=== PATIENT | female | born 2000 | race Caucasian/White ===

== ENCOUNTER 2019-11-18 03:50 | Emergency (ER) | payer OTHER ==
[~2019-11-18] VITALS: Ht 160 cm; Wt 59.0 kg
[~2019-11-18 03:50] MED LIST: ALBUTEROL2.5 MG/31 IH; ALBUTEROL2.5 MG/32 IH; ORAPRED15 MG/5 ML PO
[2019-11-18 05:21] VITALS: BP 123/61
== END 2019-11-18 05:21 | disposition home or self-care (01) ==
LOC: M.ERS 03:50
DX: S62.366A Nondisplaced fracture of neck of fifth metacarpal bone, right hand, initial encounter for closed fracture (principal); J45.909 Unspecified asthma, uncomplicated; W22.8XXA Striking against or struck by other objects, initial encounter; Y93.89 Activity, other specified; Y92.89 Other specified places as the place of occurrence of the external cause; Y99.8 Other external cause status

== ENCOUNTER 2019-12-14 05:27 | Emergency (ER) | payer OTHER ==
[~2019-12-14] VITALS: Ht 152.4 cm; Wt 63.5 kg
[2019-12-14 05:56] LABS: URINE BILIRUBIN NEGATIVE (Negative); URINE BLOOD NEGATIVE (Negative); URINE CLARITY CLEAR; URINE COLOR YELLOW; URINE GLUCOSE-RANDOM NEGATIVE (Negative); URINE LEUKOCYTES-REFLEX NEGATIVE (Negative); URINE NITRITE-REFLEX NEGATIVE (Negative); URINE PROTEIN NEGATIVE (Negative); URINE UROBILINOGEN 0.2 E.U./dl (0.2-1.0)
[2019-12-14 05:57] LABS: URINE KETONES 3+ (Negative)
[2019-12-14 06:06] LABS: ABSOLUTE LYMPHOCYTES 1.6 thou/uL (0.8-5.3); ABSOLUTE MONOCYTES 0.7 thou/uL (0.0-1.2); ABSOLUTE NEUTROPHILS 7.3 thou/uL (1.6-8.1); BASOPHILS 0.4 %; EOSINOPHILS 0.3 %; HEMATOCRIT 38.3 % (37.0-47.0); HEMOGLOBIN 12.7 gm/dL (12.0-15.0); LYMPHOCYTES 16.6 %; MCH 29.5 pg (26.0-34.0); MCHC 33.2 g/dL (28.0-37.0); MCV 89.1 fL (80.0-100.0); MONOCYTES 7.6 %; MPV 8.2 fl. (7.2-11.1); NUCLEATED RBCS 0 /100WBC; PLATELET COUNT* 257 thou/uL (150-400); POLYS 75.1 %; RDW-CV 13.9 % (10.5-14.5); WBC 9.7 thou/uL (4.0-11.0)
[2019-12-14 06:18] LABS: CALCIUM 8.8 mg/dL (8.5-10.1); CREATININE 0.8 mg/dL (0.6-1.3)
[2019-12-14 06:22] LABS: TOTAL BILIRUBIN 0.3 mg/dL (<0.1-1.0); TOTAL PROTEIN 8.4 g/dL (6.4-8.2)
[2019-12-14 06:23] LABS: POTASSIUM 2.9 mmol/L (3.5-5.1)
[2019-12-14 06:43] VITALS: BP 141/75
== END 2019-12-14 06:46 | disposition home or self-care (01) ==
LOC: M.ERS 05:27
PROVIDERS: Personal Emergency Response Attendant
DX: L53.9 Erythematous condition, unspecified (principal); Z77.098 Contact with and (suspected) exposure to other hazardous, chiefly nonmedicinal, chemicals; J45.909 Unspecified asthma, uncomplicated

== ENCOUNTER 2020-04-14 06:08 | Emergency (ER) | payer OTHER ==
[~2020-04-14] VITALS: Ht 160 cm; Wt 59.0 kg
[2020-04-14 07:11] LABS: URINE BILIRUBIN NEGATIVE (Negative); URINE BLOOD TRACE (Negative); URINE CLARITY CLEAR; URINE COLOR YELLOW; URINE GLUCOSE-RANDOM NEGATIVE (Negative); URINE KETONES NEGATIVE (Negative); URINE LEUKOCYTES NEGATIVE (Negative); URINE NITRITE NEGATIVE (Negative); URINE PROTEIN NEGATIVE (Negative); URINE SPECIFIC GRAVITY <= 1.005 (1.005-1.030); URINE UROBILINOGEN 0.2 E.U./dl (0.2-1.0)
[2020-04-14 07:16] LABS: CALCIUM 8.3 mg/dL (8.5-10.1); CREATININE 0.6 mg/dL (0.6-1.3); POTASSIUM 3.8 mmol/L (3.5-5.1)
[2020-04-14 07:19] LABS: HEMATOCRIT 38.5 % (37.0-47.0); HEMOGLOBIN 13.2 gm/dL (12.0-15.0); MCH 30.1 pg (26.0-34.0); MCHC 34.4 g/dL (28.0-37.0); MCV 87.5 fL (80.0-100.0); MPV 7.7 fl. (7.2-11.1); RBC 4.4 mil/uL (4.20-5.00); RDW-CV 14.2 % (10.5-14.5); WBC 6.5 thou/uL (4.0-11.0)
[2020-04-14 07:20] LABS: TOTAL BILIRUBIN 0.2 mg/dL (<0.1-1.0); TOTAL PROTEIN 8.3 g/dL (6.4-8.2)
[2020-04-14 09:07] VITALS: BP 125/80
== END 2020-04-14 09:07 | disposition home or self-care (01) ==
LOC: M.ERS 06:08
PROVIDERS: Emergency Medicine
DX: R10.13 Epigastric pain (principal); J45.909 Unspecified asthma, uncomplicated; Y08.89XA Assault by other specified means, initial encounter; Y93.89 Activity, other specified; Y92.89 Other specified places as the place of occurrence of the external cause; Y99.8 Other external cause status

== ENCOUNTER 2020-12-07 21:20 | Emergency (ER) | payer OTHER ==
[~2020-12-07] VITALS: Ht 160 cm; Wt 62.1 kg
[2020-12-07] MEDS ORDERED: HYDROXYZINE HCL25 M2 PO (23:39)
[2020-12-07 23:45] VITALS: BP 112/70
--- NOTE | 2020-12-09 15:20 | EKG ---
[place] [address] ELECTROCARDIOGRAM REPORT Name: PACO ARAUJO Room: [facility]#: [id number] Admission: 12/07/20 Attend Phys: Discharge: 12/07/20 Date of : 89 Date of Service: 12/07/202142 Report #: [id number] THIS REPORT FOR: //name// [facility] ED Test Date: 2020-12-07 Test Time: 21:43:05 Pat Name: PACO ARAUJO Department: Room: Gender: F Academic Intern: MS : 2000 Requested By: Kamila Jones Order Number: [id number] Eddie MD: Danny Montes Measurements Intervals [place] Rate: 86 P: 80 MS: 123 QRS: 72 QRSD: 80 T: 37 QT: 354 QTc: 424 Interpretive Statements Sinus rhythm No previous ECG available for comparison Electronically Signed On 12-09-2020 15:20:32 CDT by Danny Montes [email or web address] <ELECTRONICALLY SIGNED> By: Danny Montes MD, [facility] 12/09/20 1520 42 42 Danny Montes MD, FACC /EPI
== END 2020-12-07 23:46 | disposition home or self-care (01) ==
LOC: M.ERS 21:20
DX: F41.9 Anxiety disorder, unspecified (principal); J45.909 Unspecified asthma, uncomplicated

== ENCOUNTER 2020-12-27 15:33 | Emergency (ER) | payer OTHER ==
[~2020-12-27] VITALS: Ht 160 cm; Wt 61.7 kg
[~2020-12-27 15:33] MED LIST changes: +HYDROXYZINE HCL25 M2 PO
[2020-12-27] MEDS ORDERED: VISTARIL 25 MG25 M1 PO (16:02)
[2020-12-27 16:11] VITALS: BP 120/54
== END 2020-12-27 16:13 | disposition home or self-care (01) ==
LOC: M.ERS 15:33
DX: F41.9 Anxiety disorder, unspecified (principal); J45.909 Unspecified asthma, uncomplicated

== ENCOUNTER 2021-02-25 23:44 | Emergency (ER) | payer OTHER ==
[~2021-02-25] VITALS: Ht 162.6 cm; Wt 61.7 kg
[~2021-02-25 23:44] MED LIST changes: +VISTARIL 25 MG25 M1 PO
[2021-02-26 01:08] LABS: URINE BILIRUBIN NEGATIVE (Negative); URINE BLOOD 1+ (Negative); URINE CLARITY CLEAR; URINE COLOR YELLOW; URINE GLUCOSE-RANDOM NEGATIVE (Negative); URINE KETONES TRACE (Negative); URINE LEUKOCYTES-REFLEX NEGATIVE (Negative); URINE NITRITE-REFLEX NEGATIVE (Negative); URINE PROTEIN NEGATIVE (Negative); URINE SPECIFIC GRAVITY 1.025 (1.005-1.030); URINE UROBILINOGEN 0.2 E.U./dl (0.2-1.0)
[2021-02-26 01:16] LABS: AMP/METHAMP Negative (Negative); BARBITURATES Negative (Negative); BENZODIAZEPINES Negative (Negative); COCAINE Negative (Negative); METHADONE Negative (Negative); OPIATES Negative (Negative); PCP Negative (Negative); THC Negative (Negative)
[2021-02-26 01:19] LABS: SQUAMOUS 4-10 Moderate /LPF (0-3); TRANSITIONAL EPITHEL CELL 0-3 Few /LPF (None Seen); URINE RBC 3-10 Few /HPF (0-2); URINE WBC-REFLEX 0-5 Rare /HPF (0-5)
[2021-02-26 01:20] LABS: BACTERIA-REFLEX >30 Many /HPF (None Seen); CASTS None Seen /LPF (None Seen); CRYSTALS None Seen /LPF (None Seen); MUCUS 4-6 Moderate strn/LPF (None Seen)
[2021-02-26] MEDS ORDERED: HYDROXYZINE HCL25 M2 PO (03:43)
[2021-02-26 03:49] VITALS: BP 123/74
--- NOTE | 2021-02-27 12:45 | EKG ---
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: : 2000 Requested By: Kamila Jones Order Number: [id number] Reading MD: Danny Mnotes Measurements Intervals [place] Rate: 84 P: 87 NM: 125 QRS: 73 QRSD: 84 T: 20 QT: 357 QTc: 422 Interpretive Statements Sinus rhythm Baseline wander in lead(s) II,III,aVF,V2,V4 Compared to ECG 12/07/2020 21:43:05 No significant changes Electronically Signed On 02-27-2021 12:45:27 CDT by Danny Montes [email or web address] <ELECTRONICALLY SIGNED> By: Danny Montes MD, [facility] 02/27/21 1245 2354 2354 Danny Montes MD, [facility] /EPI
== END 2021-02-26 03:50 | disposition home or self-care (01) ==
LOC: M.ERS 23:44
PROVIDERS: Emergency Medicine
DX: F41.9 Anxiety disorder, unspecified (principal); J45.909 Unspecified asthma, uncomplicated; Z79.899 Other long term (current) drug therapy

== ENCOUNTER 2021-09-22 01:39 | Emergency (ER) | payer OTHER ==
[~2021-09-22] VITALS: Ht 162.6 cm; Wt 59.0 kg
[2021-09-22 02:32] LABS: MCH 28.8 pg (26.0-34.0); MCHC 32.5 g/dL (28.0-37.0); MCV 88.7 fL (80.0-100.0); MPV 8.3 fl. (7.2-11.1); NUCLEATED RBCS 0 /100WBC; PLATELET COUNT* 233 thou/uL (150-400); RDW-CV 13.8 % (10.5-14.5); WBC 10.4 thou/uL (4.0-11.0)
[2021-09-22 03:14] LABS: CREATININE 0.6 mg/dL (0.6-1.3); POTASSIUM 4.2 mmol/L (3.5-5.1)
[2021-09-22 03:18] LABS: URINE BILIRUBIN 1+ (Negative); URINE BLOOD 1+ (Negative); URINE CLARITY CLEAR; URINE COLOR YELLOW; URINE GLUCOSE-RANDOM NEGATIVE (Negative); URINE KETONES 2+ (Negative); URINE LEUKOCYTES-REFLEX NEGATIVE (Negative); URINE NITRITE-REFLEX NEGATIVE (Negative); URINE PROTEIN NEGATIVE (Negative); URINE SPECIFIC GRAVITY >= 1.030 (1.005-1.030); URINE UROBILINOGEN 0.2 E.U./dl (0.2-1.0)
[2021-09-22 03:19] LABS: ALBUMIN 4.1 g/dL (3.4-5.0); MAGNESIUM 1.7 mg/dL (1.8-2.4); TOTAL BILIRUBIN 0.6 mg/dL (<0.1-1.0); TOTAL PROTEIN 8.1 g/dL (6.4-8.2)
[2021-09-22] MEDS ORDERED: ZOFRAN ODT4 MG PO (03:21)
[2021-09-22 03:27] LABS: ABSOLUTE EOSINOPHILS 0.1 thou/uL (0.0-0.7); ABSOLUTE LYMPHOCYTES 0.4 thou/uL (0.8-5.3); ABSOLUTE MONOCYTES 0.9 thou/uL (0.0-1.2); ABSOLUTE NEUTROPHILS 8.9 thou/uL (1.6-8.1); TOXIC GRANULATION 1+
[2021-09-22 03:29] LABS: LARGE PLATELETS FEW; PLATELET ESTIMATE ADEQUATE
[2021-09-22 03:33] LABS: BACTERIA-REFLEX >30 Many /HPF (None Seen); CRYSTALS None Seen /LPF (None Seen); FINE GRANULAR CASTS 0-3 Few /LPF (None Seen); HYALINE CASTS 0-3 Few /LPF (None Seen); MUCUS 4-6 Moderate strn/LPF (None Seen); SQUAMOUS 0-3 Few /LPF (0-3); URINE RBC 3-10 Few /HPF (0-2); URINE WBC-REFLEX 0-5 Rare /HPF (0-5)
[2021-09-22 03:43] VITALS: BP 101/40
== END 2021-09-22 03:47 | disposition home or self-care (01) ==
LOC: M.ERS 01:39
PROVIDERS: Emergency Medicine
DX: R11.2 Nausea with vomiting, unspecified (principal); R19.7 Diarrhea, unspecified; J45.909 Unspecified asthma, uncomplicated; Z90.89 Acquired absence of other organs